=== PATIENT | female | born 1955 | race Caucasian/White ===

== ENCOUNTER 2016-11-17 13:21 | Inpatient (IN) | payer MEDICARE, MEDICAID ==
[~2016-11-17 13:21] MED LIST: ABILIFY10 MG; ABILIFY5 MG PO; ADVIL MIGRAINE200 MG; ALBUTEROL SULF8.5 G1 IH; ALBUTEROL17 GM; ALLOPURINOL100 MG PO; AMBIEN10 MG PO; ANTI DIARRHEAL; ATARAX50 MG PO; ATIVAN1 M1 PO; ATIVAN1 MG; AUGMENTIN 875-1 EAC2 PO; AZATHIOPRINE50 MG; AZATHIOPRINE50 MG PO; BENAZEPRIL-HCT; BENAZEPRIL-HCT PO; BENTYL10 MG PO; CEFDINIR300 M1 PO; CEFUROXIME250 M1 PO; CHANTIX1 MG; CULTURELLE1 EAC1 PO; CYCLOBENZAPRINE5 M1 PO; CYMBALTA30 MG; CYMBALTA30 MG PO; CYMBALTA60 MG; CYMBALTA60 MG PO; DOXYCYCLINE MO100 M1 PO; DULERA 200 MCG/13 G1 INH; ELIMITE60 G1 TP; ESTRADIOL1 MG; FELBAMATE PO; FLAGYL500 MG PO; FLEXERIL10 MG PO; GABAPENTIN300 MG; GABAPENTIN600 MG; GLUCAGEN1 MG/1 ML IM; GLUCAGON HCL1 MG IM; GLUCOPHAGE1000 M1 PO; HCTZ/RESERPINE/1 TAB; HUMIRA40 MG/0.8 SQ; HYDROCHLORIDE; HYDROCODON-ACE1 EA17 PO; HYDROCODONE-ACE15 M2 PO; HYDROCODONE/APA1 CAP PO; HYDROXYZINE HCL25 M1 PO; IMODIUM A-D2 M4 PO; IMURAN50 MG PO; JANUMET 50-1,01 EACH PO; K-DUR20 ME1 PO; K-DUR20 MEQ; K-TAB ER20 ME1 PO; KEPPRA500 M1 PO; KEPPRA500 M2 PO; KEPPRA500 M3 PO; KEPPRA500 MG; KEPPRA750 MG; KLONOPIN0.5 M1 PO; LAMICTAL25 M1 PO; LEVETIRACETAM500 M2 PO; LEXAPRO20 MG; LIPITOR80 MG PO; LISINOPRIL5 M1 PO; LOPERAMIDE; LOPERAMIDE2 MG; LOPRE PO; LOPRESSOR50 M1 PO; LOPRESSOR50 MG; LOPRESSOR50 MG PO; LOTENSIN HCT 201 TAB PO; LOVENOX40 MG/0.1 SC; LYRICA100 MG/CAP PO; LYRICA75 MG; MACROBID 100 M100 MG PO; MAXALT10 MG; METOPROLOL TART25 M1 PO; METOPROLOL TART50 M2 PO; METOPROLOL TART50 MG PO; MONISTAT 31 EACH TOP; MONISTAT 744 GM TP; MUCINEX600 MG; MULTIVITAMIN1 CAP; MULTIVITAMIN1 TAB; NEXIUM40 M1 PO; NEXIUM40 MG; NEXIUM40 MG PO; NORCO 10-325 T1 EACH PO; NORCO 10/325 TA1 TAB; NORCO 5-325 TA1 EACH PO; NORCO 5/325 TAB1 TAB PO; NORCO 5/3251 TA1 PO; NORCO 5/3251 TA2 PO; NORTRIPTYLINE H25 MG; NORTRIPTYLINE H50 MG; NORTRIPTYLINE H50 MG PO; NORVASC10 M1 PO; NORVASC2.5 MG PO; NORVASC5 M2 PO; NOVOLOG100 UNITS/ SC; NYAMYC15 GM TOP; OXYCODONE HCL5 M1 PO; PAMELOR50 MG; PERCOCET 5/3251 TAB PO; PHENERGAN12.5 MG PO; PHENERGAN25 M1 PO; PNV PRENATAL P1 EACH PO; POTASSIUM CHLO10 ME2 PO; POTASSIUM CHLO20 ME3 PO; POTASSIUM CHLO20 MEQ; POTASSIUM CHLO20 MEQ PO; PREDNISONE1 MG PO; PREDNISONE5 MG PO; PREMARIN0.3 MG PO; PREMARIN1.25 MG; PREMARIN1.25 MG PO; PROAIR HFA8.5 GM INH; PROCTOSOL HC RC; PROMETHAZINE25 MG PO; PROTONIX40 M2 PO; PROVENTIL0.83 MG/ML; PROZAC20 M2 PO; PROZAC40 MG PO; PYRIDIUM200 MG PO; REGLAN10 MG PO; REGLAN5 M1 PO; SEROQUEL X300 MG/TAB PO; SEROQUEL XR150 MG PO; SEROQUEL XR400 M2 PO; SEROQUEL100 M1 PO; SKELAXIN800 MG PO; SLOW-MAG71.5 MG PO; SPIRIVA; SPIRIVA18 MC1 INH; SPIRIVA18 MCG; SPIRIVA18 MCG IH; SYMBICORT 160-1 PUFF INH; SYMBICORT 160-4.6 GM IH; TOPAMAX100 M1 PO; TOPAMAX100 MG; TOPAMAX25 M2 PO; TOPIRAMATE100 MG PO; TOPIRAMATE50 M1 PO; TREXIMET 85-5001 TAB; TREXIMET 85-5001 TAB PO; TYLENOL325 M1 PO; TYLENOL325 M2 PO; VICODIN 5/500 T1 TAB PO; VIIBRYD10 MG PO; VIIBRYD20 M1 PO; VIIBRYD40 M1 PO; VITAMIN C PO; VITAMIN D250000 UNI1 PO; VITAMIN D32000 UNI1 PO; VITAMIN D32000 UNI2 PO; VITAMIN D400 UNI1 PO; XANAX0.25 M1 PO; ZOFRAN ODT4 MG PO; ZOFRAN ODT4 MG/UDTAB PO; ZOFRAN4 M1 PO; ZOFRAN4 M2 PO; ZYLOPRIM100 MG PO; [UNRECOGNIZED DRUG - CODE]; [UNRECOGNIZED DRUG - OTHER] PO; [UNRECOGNIZED DRUG - SUPPLY]
[2016-11-17] MEDS ORDERED: KEPPRA500 M3 PO (13:54)
[2016-11-17 14:41] LABS: HCT-HEMATOCRIT 36.1 % (34.0-49.0); HGB-HEMOGLOBIN 10.9 gm/dl (12.0-15.5); MCH (MEAN CORPUSCULAR HGB) 25.1 pg (28.0-32.0); MCHC MEAN CORPUSCULAR HGB CONC 30.2 % (32.0-36.0); MEAN PLATELET VOLUME 10.5 cmc (9.4-12.4); NEUTROPHIL-AUTOMATED 16.7 tho/cmm (1.6-8.0); PLATELET COUNT 572 tho/cmm (150-450); RED BLOOD COUNT 4.35 mil/cmm (4.00-5.20); RED CELL DISTRIBUTION WIDTH 16.3 % (12.4-16.4); WHITE BLOOD COUNT 21.1 tho/cmm (4.0-10.0)
[2016-11-17 14:51] LABS: URINE BILIRUBIN NEGATIVE (NEG); URINE BLOOD LARGE (NEG); URINE GLUCOSE (UA) NEGATIVE (NEG); URINE KETONE NEGATIVE (NEG); URINE LEUKOCYTE ESTERASE POSITIVE (NEG); URINE NITRITE NEGATIVE (NEG); URINE PROTEIN MODERATE (NEG); URINE SPECIFIC GRAVITY 1.015 (1.003-1.030)
[2016-11-17 14:52] LABS: URINE APPEARANCE HAZY; URINE COLOR YELLOW
[2016-11-17 14:59] LABS: URINE AMORPHOUS 2+; URINE BACTERIA 1+
[2016-11-17 15:00] LABS: URINE RBC FULL FIELD /[HPF] (0-5); URINE WBC FULL FIELD /[HPF] (0-5)
[2016-11-17 15:17] LABS: BAND % 5 % (0-20); BAND ABSOLUTE COUNT 1.1 tho/cmm (0-2.0); EOSINOPHIL % 3 % (0-7)
[2016-11-17 15:49] LABS: ANION GAP 17 mmol/L (0-20); BLOOD UREA NITROGEN 66 mg/dl (6-24); CALCIUM 10.1 mg/dl (8.5-10.5); CARBON DIOXIDE-VENOUS 20 mmol/L (22-32); CHLORIDE 104 mmol/l (96-110); CREATININE 4.11 mg/dl (0.50-1.10); GLUCOSE 123 mg/dL (70-110); MAGNESIUM 1.9 mg/dl (1.3-2.6); SODIUM 134 mmol/L (135-145); eGFR VALUE FOR BLACK 13 mL/Min
[2016-11-17 15:52] LABS: POTASSIUM 6.7 mmol/L (3.7-5.1)
[2016-11-17 16:10] LABS: PROCALCITONIN 0.14 ng/ml (0.05-0.09)
[2016-11-17 21:34] LABS: ANION GAP 13 mmol/L (0-20); BLOOD UREA NITROGEN 61 mg/dl (6-24); C-REACTIVE PROTEIN 5.2 mg/dl (0-0.9); CARBON DIOXIDE-VENOUS 22 mmol/L (22-32); CHLORIDE 108 mmol/l (96-110); CREATININE 3.36 mg/dl (0.50-1.10); GLUCOSE 150 mg/dL (70-110); SODIUM 137 mmol/L (135-145); eGFR VALUE FOR BLACK 16 mL/Min
[2016-11-17 21:38] LABS: POTASSIUM 5.6 mmol/L (3.7-5.1)
[2016-11-18 06:06] LABS: BASO % 0.2 % (0-2); EOS % 3.3 % (0-7); EOSINOPHIL ABSOLUTE COUNT 0.4 tho/cmm (0.0-0.7); HCT-HEMATOCRIT 30.8 % (34.0-49.0); HGB-HEMOGLOBIN 9.2 gm/dl (12.0-15.5); IMMATURE GRANULOCYTES ABSOLUTE 0.05 tho/cmm (0-0.03); IMMATURE GRANULOCYTES PERCENT 0.4 % (0-0.3); LYMPH % 11.8 % (20-45); LYMPH ABSOLUTE COUNT 1.5 tho/cmm (0.8-4.5); MCH (MEAN CORPUSCULAR HGB) 24.6 pg (28.0-32.0); MCHC MEAN CORPUSCULAR HGB CONC 29.9 % (32.0-36.0); MCV (MEAN CELL VOLUME) 82.4 fl (82.0-96.0); MEAN PLATELET VOLUME 9.8 cmc (9.4-12.4); MONO % 9.4 % (0-12); MONOCYTE ABSOLUTE COUNT 1.2 tho/cmm (0.0-1.2); NEUTROPHIL ABSOLUTE COUNT 9.4 tho/cmm (1.6-8.0); NEUTROPHIL-AUTOMATED 9.4 tho/cmm (1.6-8.0); NEUTROPHILS % 74.9 % (40-80); PLATELET COUNT 383 tho/cmm (150-450); RED BLOOD COUNT 3.74 mil/cmm (4.00-5.20); RED CELL DISTRIBUTION WIDTH 16.5 % (12.4-16.4); WHITE BLOOD COUNT 12.5 tho/cmm (4.0-10.0)
[2016-11-18 06:16] LABS: ANION GAP 12 mmol/L (0-20); BLOOD UREA NITROGEN 46 mg/dl (6-24); C-REACTIVE PROTEIN 4.2 mg/dl (0-0.9); CALCIUM 8.9 mg/dl (8.5-10.5); CARBON DIOXIDE-VENOUS 20 mmol/L (22-32); CHLORIDE 114 mmol/l (96-110); GLUCOSE 107 mg/dL (70-110); MAGNESIUM 1.6 mg/dl (1.3-2.6); SODIUM 141 mmol/L (135-145); eGFR VALUE FOR BLACK 25 mL/Min
[2016-11-18 06:26] LABS: CREATININE 2.32 mg/dl (0.50-1.10)
[2016-11-18 13:15] LABS: URINE PRT/CR RATIO 1.74 Ratio (0.0-0.20)
[2016-11-19 07:19] LABS: BASO % 0.2 % (0-2); EOS % 3.9 % (0-7); EOSINOPHIL ABSOLUTE COUNT 0.3 tho/cmm (0.0-0.7); HCT-HEMATOCRIT 28.4 % (34.0-49.0); HGB-HEMOGLOBIN 8.6 gm/dl (12.0-15.5); IMMATURE GRANULOCYTES ABSOLUTE 0.02 tho/cmm (0-0.03); IMMATURE GRANULOCYTES PERCENT 0.2 % (0-0.3); LYMPH % 15.4 % (20-45); LYMPH ABSOLUTE COUNT 1.3 tho/cmm (0.8-4.5); MCH (MEAN CORPUSCULAR HGB) 24.8 pg (28.0-32.0); MCHC MEAN CORPUSCULAR HGB CONC 30.3 % (32.0-36.0); MCV (MEAN CELL VOLUME) 81.8 fl (82.0-96.0); MEAN PLATELET VOLUME 9.5 cmc (9.4-12.4); MONOCYTE ABSOLUTE COUNT 0.8 tho/cmm (0.0-1.2); NEUTROPHIL ABSOLUTE COUNT 6.2 tho/cmm (1.6-8.0); NEUTROPHIL-AUTOMATED 6.2 tho/cmm (1.6-8.0); NEUTROPHILS % 71.3 % (40-80); PLATELET COUNT 327 tho/cmm (150-450); RED BLOOD COUNT 3.47 mil/cmm (4.00-5.20); RED CELL DISTRIBUTION WIDTH 16.6 % (12.4-16.4); WHITE BLOOD COUNT 8.7 tho/cmm (4.0-10.0)
[2016-11-19 07:35] LABS: BLOOD UREA NITROGEN 18 mg/dl (6-24); CALCIUM 8.6 mg/dl (8.5-10.5); CARBON DIOXIDE-VENOUS 20 mmol/L (22-32); CHLORIDE 115 mmol/l (96-110); GLUCOSE 143 mg/dL (70-110); MAGNESIUM 1.3 mg/dl (1.3-2.6); PHOSPHOROUS 2.4 mg/dl (2.5-4.9); SODIUM 143 mmol/L (135-145); eGFR VALUE FOR BLACK 51 mL/Min
[2016-11-19 07:37] LABS: ANION GAP 12 mmol/L (0-20)
[2016-11-19] MEDS ORDERED: TERCONAZOLE80 MG VG (10:36)
[2016-11-19] MEDS ORDERED: HOLD THE FOLLOWING: (10:38)
[2016-11-19] MEDS ORDERED: STOP THE FOLLOWING: (10:40)
[2017-03-04] MEDS ORDERED: MACROBID 100 M100 M1 PO (21:43)
[2017-04-05] MEDS ORDERED: PERCOCET 7.5-31 EAC1 PO (11:03)
[2017-04-05] MEDS ORDERED: AUGMENTIN 875-1 EAC2 PO (11:04)
[2017-04-05] MEDS ORDERED: KEPPRA500 M3 PO (11:22)
[2017-04-08] MEDS ORDERED: CLEOCIN HCL300 M1 PO (16:01)
[2017-04-22] MEDS ORDERED: INVANZ1 GM IV ×3 (07:42→08:28)
[2017-04-22] MEDS ORDERED: CULTURELLE1 EAC1 PO (09:57)
[2017-06-12] MEDS ORDERED: JANUMET (19:53)
[2017-06-12] MEDS ORDERED: [UNRECOGNIZED DRUG - OTHER] (19:56)
[2017-06-12] MEDS ORDERED: SYMBICORT 160-1 PUFF INH (19:56)
[2017-06-12] MEDS ORDERED: CEFDINIR300 M1 PO (21:08)
== END 2016-11-19 12:00 | DRG 683 ==
LOC: EDMED 13:21 → EMR2 18:59 → 5WD 20:47
PROVIDERS: Emergency Medicine; ADMIT Family Medicine
DX: N17.9 Acute kidney failure, unspecified (principal); N39.0 Urinary tract infection, site not specified; I95.9 Hypotension, unspecified; K50.90 Crohn's disease, unspecified, without complications; E86.1 Hypovolemia; E11.9 Type 2 diabetes mellitus without complications; R00.0 Tachycardia, unspecified; J44.9 Chronic obstructive pulmonary disease, unspecified; E87.5 Hyperkalemia; N89.8 Other specified noninflammatory disorders of vagina; R42 Dizziness and giddiness; G40.909 Epilepsy, unspecified, not intractable, without status epilepticus; F41.9 Anxiety disorder, unspecified; F32.9 Major depressive disorder, single episode, unspecified; K21.9 Gastro-esophageal reflux disease without esophagitis; F11.90 Opioid use, unspecified, uncomplicated; Z88.8 Allergy status to other drugs, medicaments and biological substances; Z90.710 Acquired absence of both cervix and uterus; Z90.49 Acquired absence of other specified parts of digestive tract; Z86.73 Personal history of transient ischemic attack (TIA), and cerebral infarction without residual deficits; Z88.1 Allergy status to other antibiotic agents; Z88.2 Allergy status to sulfonamides; Z93.2 Ileostomy status
CPT/HCPCS: J0610; J0696; J1650; J1815; J2270; J2405; J2543; J7030

== ENCOUNTER 2017-01-12 11:09 | Inpatient (IN) | payer MEDICARE, MEDICAID ==
[~2017-01-12 11:09] MED LIST changes: +HOLD THE FOLLOWING:; +STOP THE FOLLOWING:; +TERCONAZOLE80 MG VG
[2017-01-12] MEDS ORDERED: XANAX0.25 M1 PO (11:30)
[2017-01-12] MEDS ORDERED: AMITRIPTYLINE100 M1 PO (11:31)
[2017-01-12] MEDS ORDERED: HUMIRA40 MG/0.3 SC (11:32)
[2017-01-12] MEDS ORDERED: PRINIVIL5 M1 PO (11:52)
[2017-01-12] MEDS ORDERED: AMITRIPTYLINE H50 M1 PO (11:55)
[2017-01-12 12:01] LABS: BASO % 0.2 % (0-2); EOS % 1.1 % (0-7); EOSINOPHIL ABSOLUTE COUNT 0.1 tho/cmm (0.0-0.7); IMMATURE GRANULOCYTES ABSOLUTE 0.04 tho/cmm (0-0.03); IMMATURE GRANULOCYTES PERCENT 0.3 % (0-0.3); LYMPH % 16.2 % (20-45); LYMPH ABSOLUTE COUNT 2.1 tho/cmm (0.8-4.5); MCH (MEAN CORPUSCULAR HGB) 24.2 pg (28.0-32.0); MCHC MEAN CORPUSCULAR HGB CONC 30.6 % (32.0-36.0); MCV (MEAN CELL VOLUME) 79.3 fl (82.0-96.0); MEAN PLATELET VOLUME 9.7 cmc (9.4-12.4); MONO % 10.2 % (0-12); MONOCYTE ABSOLUTE COUNT 1.3 tho/cmm (0.0-1.2); NEUTROPHIL ABSOLUTE COUNT 9.2 tho/cmm (1.6-8.0); NEUTROPHIL-AUTOMATED 9.2 tho/cmm (1.6-8.0); PLATELET COUNT 376 tho/cmm (150-450); RED BLOOD COUNT 4.54 mil/cmm (4.00-5.20); RED CELL DISTRIBUTION WIDTH 16.9 % (12.4-16.4); WHITE BLOOD COUNT 12.7 tho/cmm (4.0-10.0)
[2017-01-12] MEDS ORDERED: LOPRESSOR50 M1 PO (12:07)
[2017-01-12 12:17] LABS: ALB/GLOB RATIO 0.6 (0.8-2.0); ALBUMIN 3.3 g/dl (3.5-5.0); ALKALINE PHOSPHATASE 132 U/L (33-138); ALT/SGPT 19 U/L (12-78); BILIRUBIN,TOTAL 0.2 mg/dl (0-1.5); BLOOD UREA NITROGEN 14 mg/dl (6-24); C-REACTIVE PROTEIN 4.9 mg/dl (0-0.9); CALCIUM 9.9 mg/dl (8.5-10.5); CARBON DIOXIDE-VENOUS 19 mmol/L (22-32); CHLORIDE 107 mmol/l (96-110); CREATININE 1.02 mg/dl (0.50-1.10); GLUCOSE 131 mg/dL (70-110); SODIUM 138 mmol/L (135-145); eGFR VALUE FOR BLACK 69 mL/Min
[2017-01-12 12:19] LABS: ANION GAP 17 mmol/L (0-20)
[2017-01-12 12:20] LABS: AST/SGOT 19 U/L (10-40); POTASSIUM 4.6 mmol/L (3.7-5.1)
[2017-01-12 15:03] LABS: URINE BILIRUBIN NEGATIVE (NEG); URINE BLOOD LARGE (NEG); URINE GLUCOSE (UA) NEGATIVE (NEG); URINE KETONE NEGATIVE (NEG); URINE LEUKOCYTE ESTERASE POSITIVE (NEG); URINE NITRITE NEGATIVE (NEG); URINE PROTEIN MODERATE (NEG)
[2017-01-12 15:05] LABS: URINE APPEARANCE HAZY; URINE COLOR DARK YELLOW
[2017-01-12 15:11] LABS: URINE RBC 100-120 /[HPF] (0-5); URINE WBC 15-20 /[HPF] (0-5)
[2017-01-12 15:28] LABS: PROTHROMBIN TIME 11.2 SECONDS (9.0-13.6)
[2017-01-12 15:31] LABS: MAGNESIUM 2.1 mg/dl (1.8-2.6)
[2017-01-12 15:45] LABS: PROCALCITONIN <0.05 ng/ml (0.05-0.09)
[2017-01-13 04:32] LABS: HCT-HEMATOCRIT 29.5 % (34.0-49.0); HGB-HEMOGLOBIN 8.8 gm/dl (12.0-15.5); IMMATURE GRANULOCYTES ABSOLUTE 0.02 tho/cmm (0-0.03); IMMATURE GRANULOCYTES PERCENT 0.2 % (0-0.3); LYMPH % 10.7 % (20-45); LYMPH ABSOLUTE COUNT 0.9 tho/cmm (0.8-4.5); MCH (MEAN CORPUSCULAR HGB) 23.7 pg (28.0-32.0); MCHC MEAN CORPUSCULAR HGB CONC 29.8 % (32.0-36.0); MCV (MEAN CELL VOLUME) 79.3 fl (82.0-96.0); MONO % 5.3 % (0-12); MONOCYTE ABSOLUTE COUNT 0.4 tho/cmm (0.0-1.2); NEUTROPHILS % 83.8 % (40-80); PLATELET COUNT 331 tho/cmm (150-450); RED BLOOD COUNT 3.72 mil/cmm (4.00-5.20); RED CELL DISTRIBUTION WIDTH 16.8 % (12.4-16.4); WHITE BLOOD COUNT 8.4 tho/cmm (4.0-10.0)
[2017-01-13 04:48] LABS: ANION GAP 13 mmol/L (0-20); BLOOD UREA NITROGEN 12 mg/dl (6-24); C-REACTIVE PROTEIN 4.4 mg/dl (0-0.9); CALCIUM 8.6 mg/dl (8.5-10.5); CARBON DIOXIDE-VENOUS 22 mmol/L (22-32); CHLORIDE 109 mmol/l (96-110); CREATININE 1.01 mg/dl (0.50-1.10); GLUCOSE 145 mg/dL (70-110); POTASSIUM 4.3 mmol/L (3.7-5.1); SODIUM 140 mmol/L (135-145); eGFR VALUE FOR BLACK 70 mL/Min
[2017-01-13 05:16] LABS: PROCALCITONIN <0.05 ng/ml (0.05-0.09)
[2017-01-13 09:08] LABS: IRON 16 ug/dl (37-170); IRON BINDING CAPACITY 286 ug/dl (250-450)
--- NOTE | 2017-01-13 20:47 | NUR ---
DESHAUN GUERRA NOTE-VISITED WITH PATIENT SHE LAY IN BED COMFORTABLE STATING PAIN IS STAYING CONTROLLED. SHE STATES SHE HAS NOT BEEN ABLE TO WALK IN HALLS HER OSTOMY BAG WAS LEAKING TODAY AND HAD TO WAIT FOR EMIR TO COME FIX WITH THE WOUND VAC. NOW IT IS WORKING RIGHT AND NOT LEAKING SO SHE CAN WALK IN HALLS. I PAGED AIDE REQUESTING FOR HER TO WALK PATIENT AND HELP TO THE BATHROOM. PATIENT HAD NO OTHER QUESTIONS OR CONCERNS AT THIS TIME. CHART REVIEWED
[2017-01-14 04:19] LABS: BASO % 0.2 % (0-2); EOS % 0.8 % (0-7); EOSINOPHIL ABSOLUTE COUNT 0.1 tho/cmm (0.0-0.7); HCT-HEMATOCRIT 26.3 % (34.0-49.0); HGB-HEMOGLOBIN 7.8 gm/dl (12.0-15.5); IMMATURE GRANULOCYTES ABSOLUTE 0.02 tho/cmm (0-0.03); IMMATURE GRANULOCYTES PERCENT 0.2 % (0-0.3); LYMPH % 18.6 % (20-45); LYMPH ABSOLUTE COUNT 1.8 tho/cmm (0.8-4.5); MCH (MEAN CORPUSCULAR HGB) 23.5 pg (28.0-32.0); MCHC MEAN CORPUSCULAR HGB CONC 29.7 % (32.0-36.0); MCV (MEAN CELL VOLUME) 79.2 fl (82.0-96.0); MEAN PLATELET VOLUME 9.3 cmc (9.4-12.4); MONO % 11.1 % (0-12); MONOCYTE ABSOLUTE COUNT 1.1 tho/cmm (0.0-1.2); NEUTROPHIL ABSOLUTE COUNT 6.7 tho/cmm (1.6-8.0); NEUTROPHIL-AUTOMATED 6.7 tho/cmm (1.6-8.0); NEUTROPHILS % 69.1 % (40-80); PLATELET COUNT 289 tho/cmm (150-450); RED BLOOD COUNT 3.32 mil/cmm (4.00-5.20); RED CELL DISTRIBUTION WIDTH 17.3 % (12.4-16.4); WHITE BLOOD COUNT 9.6 tho/cmm (4.0-10.0)
[2017-01-14 04:28] LABS: ANION GAP 13 mmol/L (0-20); BLOOD UREA NITROGEN 16 mg/dl (6-24); CALCIUM 8.4 mg/dl (8.5-10.5); CARBON DIOXIDE-VENOUS 22 mmol/L (22-32); CHLORIDE 114 mmol/l (96-110); CREATININE 1.07 mg/dl (0.50-1.10); GLUCOSE 164 mg/dL (70-110); SODIUM 145 mmol/L (135-145); eGFR VALUE FOR BLACK 65 mL/Min
[2017-01-14 13:47] LABS: HCT-HEMATOCRIT 27.8 % (34.0-49.0); HGB-HEMOGLOBIN 8.3 gm/dl (12.0-15.5); MCV (MEAN CELL VOLUME) 78.8 fl (82.0-96.0); RED CELL DISTRIBUTION WIDTH 17.4 % (12.4-16.4)
--- NOTE | 2017-01-14 21:03 | NUR ---
VIRTUAL CARE NOTE: REVIEWED PLAN OF CARE WITH PT. SHE STATES IS READY TO GO HOME. SPOKE TO INSURANCE COMPANY AND SHE SAYS IT SOUNDS LIKE EVERYTHING SHOULD BE STRAIGHTENED OUT, INSURANCE WAS JUST NEED TO SPEAK WITH MD POSSIBLE R/G WOUND VAC. PT DENIES QUESTIONS ABOUT PLAN OR MEDICATIONS. ENCOURAGED FALL PRECUATIONS AND TO NOTIFY STAFF OF ANY NEEDS, REQUESTING ICE CREAM AT THIS TIME. PAGED FLOOR STAFF. WILL CONTINUE WITH CHART REVIEW.
[2017-01-15 04:55] LABS: BASO % 0.3 % (0-2); EOS % 2.3 % (0-7); EOSINOPHIL ABSOLUTE COUNT 0.2 tho/cmm (0.0-0.7); HCT-HEMATOCRIT 28.1 % (34.0-49.0); HGB-HEMOGLOBIN 8.3 gm/dl (12.0-15.5); IMMATURE GRANULOCYTES ABSOLUTE 0.04 tho/cmm (0-0.03); IMMATURE GRANULOCYTES PERCENT 0.5 % (0-0.3); LYMPH % 22.9 % (20-45); LYMPH ABSOLUTE COUNT 1.8 tho/cmm (0.8-4.5); MCH (MEAN CORPUSCULAR HGB) 23.4 pg (28.0-32.0); MCHC MEAN CORPUSCULAR HGB CONC 29.5 % (32.0-36.0); MCV (MEAN CELL VOLUME) 79.2 fl (82.0-96.0); MEAN PLATELET VOLUME 8.9 cmc (9.4-12.4); MONOCYTE ABSOLUTE COUNT 0.9 tho/cmm (0.0-1.2); PLATELET COUNT 287 tho/cmm (150-450); RED BLOOD COUNT 3.55 mil/cmm (4.00-5.20); RED CELL DISTRIBUTION WIDTH 17.4 % (12.4-16.4); WHITE BLOOD COUNT 7.9 tho/cmm (4.0-10.0)
[2017-01-15 05:03] LABS: ANION GAP 11 mmol/L (0-20); BLOOD UREA NITROGEN 11 mg/dl (6-24); CALCIUM 8.7 mg/dl (8.5-10.5); CARBON DIOXIDE-VENOUS 24 mmol/L (22-32); CHLORIDE 114 mmol/l (96-110); CREATININE 0.99 mg/dl (0.50-1.10); GLUCOSE 130 mg/dL (70-110); POTASSIUM 3.7 mmol/L (3.7-5.1); SODIUM 145 mmol/L (135-145); eGFR VALUE FOR BLACK 71 mL/Min
[2017-01-15] MEDS ORDERED: CLEOCIN HCL300 M1 PO (10:58)
[2017-01-15] MEDS ORDERED: IRON325 M3 PO (11:01)
[2017-01-15] MEDS ORDERED: TYLENOL325 M2 PO (11:02)
--- NOTE | 2017-01-15 14:35 | NUR ---
virtual care note: visited w/ pt at this time. she is hoping to go home, just waiting on wound vac approval from insurance. pt states she called her insurance company as well to see how long it would take--they told her up to 72 hours. pt's discharge paperwork is complete, just waiting to perform dc education when approval is recieved from insurance and social professionals. has no further needs at this time, no questions. will continue to monitor. electronic chart reviewed.
--- NOTE | 2017-01-15 21:36 | NUR ---
VIRTUAL CARE NOTES: PT. IN BED, DENIES PAIN. STATES HAS WALKED X1 TODAY. ENCOURAGED TO WALK MORE IN THE HALLWAYS FOR PREVENTION OF CLOTS AND PNEUMONIA. DENIES FURTHER NEEDS AT THIS TIME. INSTRUCTED TO CALL FOR FURTURE NEEDS. STATES VERBAL AGREEMENT.
[2017-01-16 07:43] LABS: HGB-HEMOGLOBIN 9.9 gm/dl (12.0-15.5); PLATELET COUNT 344 tho/cmm (150-450)
--- NOTE | 2017-01-16 15:40 | NUR ---
VIRTUAL CARE NOTE: PT AWAKE RESTING IN BED. PT AWAITING INSURANCE AUTHORIZATION FOR HOME WOUND VAC- VERBALIZES FRUSTRATION WITH PENDING AUTHORIZATION. PT DENIES QUESTIONS OR OTHER CONCERNS AT THIS TIME.
--- NOTE | 2017-01-16 21:22 | NUR ---
VIRTUAL CARE NOTE: PT. IN BED, STATES HER IV GOT PUFFY PRIOR SO THEY TOOK IT OUT. DENIES PAIN. STATES FEELS GREAT. DENIES QUESTIONS OR NEEDS AT THIS TIME. INSTRUCTED TO CALL FOR FUTURE NEEDS.
--- NOTE | 2017-01-17 14:55 | NUR ---
VIRTUAL CARE NOTE: PT UNAVAILABLE AT THIS TIME FOR VN ROUND. ORDERS REVIEWED. PT AWAITING INSURANCE AUTHORIZATION FOR HOME WOUNDVAC-DC PENDING
--- NOTE | 2017-01-17 19:23 | NUR ---
VIRTUAL CARE NOTE: PT. IN BED DENIES PAIN, HAS NO QUESTIONS OR CONCERNS AT THIS TIME. INSTRUCTED TO CALL FOR FUTURE NEEDS. STATES VERBAL AGREEMENT.
[2017-01-18 05:37] LABS: HGB-HEMOGLOBIN 10.9 gm/dl (12.0-15.5); PLATELET COUNT 384 tho/cmm (150-450)
[2017-01-18] MEDS ORDERED: KEFLEX500 M4 PO (11:13)
--- NOTE | 2017-01-18 12:52 | NUR ---
VIRTUAL CARE NOTE: PT RESTING ON BED, STATES GETTING BORED, AWAITING FOR WOUDN VAC APPROVAL FROM HER INSURANCE TO BE DISCHARGED HOME. WOUND VAC CHANGED TODAY, PT AMBULATES INDEPENDENTLY, DENIES ANY NEEDS AT THIS TIME.
[2017-01-19] MEDS ORDERED: CLEOCIN HCL300 M1 PO (12:32)
--- NOTE | 2017-01-19 13:12 | NUR ---
VN DISCHARGE NOTE-DID DISCHARGE TEACHING REGARDING DRESSING CHANGES WITH THE WOUND VAC AND HAVING [facility] DO THEM ON M,W,F. REVIEWED DIET,SMOKING CESSATION, MEDICATIONS AND NEW MEDICATIONS, S/S TO WATCH FOR AND TO CALL THE DOCTOR ON. FOLLOWUP APPTS REVIEWED ALSO. PATIENT SUCCESSFULLY DID THE TEACHBACK TEACHING AND WE REVIEWED WHAT MEDS SHE WILL NEED TO TAKE TONIGHT AGAIN THE LAST DOSE IS ON THE DISCHARGE MEDICATION SHEET. NO OTHER QUESTIONS OR CONCERNS AT THIS TIME
[2017-03-04] MEDS ORDERED: MACROBID 100 M100 M1 PO (21:43)
[2017-04-05] MEDS ORDERED: PERCOCET 7.5-31 EAC1 PO (11:03)
[2017-04-05] MEDS ORDERED: AUGMENTIN 875-1 EAC2 PO (11:04)
[2017-04-05] MEDS ORDERED: KEPPRA500 M3 PO (11:22)
[2017-04-08] MEDS ORDERED: CLEOCIN HCL300 M1 PO (16:01)
[2017-04-22] MEDS ORDERED: INVANZ1 GM IV ×3 (07:42→08:28)
[2017-04-22] MEDS ORDERED: CULTURELLE1 EAC1 PO (09:57)
[2017-06-12] MEDS ORDERED: JANUMET (19:53)
[2017-06-12] MEDS ORDERED: SYMBICORT 160-1 PUFF INH (19:56)
[2017-06-12] MEDS ORDERED: [UNRECOGNIZED DRUG - OTHER] (19:56)
[2017-06-12] MEDS ORDERED: CEFDINIR300 M1 PO (21:08)
== END 2017-01-19 13:35 | disposition home health service (06) | DRG 857 ==
LOC: EDMED 11:09 → EMR2 15:04 → PACU 17:53 → 5WD 19:16
PROVIDERS: Nurse Practitioner Family; ADMIT Family Medicine
PROC: 0JB80ZZ Excision of Abdomen Subcutaneous Tissue and Fascia, Open Approach (ICD-10-PCS; principal; 2017-01-12)
PROC: 0J980ZZ Drainage of Abdomen Subcutaneous Tissue and Fascia, Open Approach (ICD-10-PCS; 2017-01-12)
DX: T81.4XXA Infection following a procedure, initial encounter (principal); E87.2 Acidosis; K50.90 Crohn's disease, unspecified, without complications; E11.65 Type 2 diabetes mellitus with hyperglycemia; D62 Acute posthemorrhagic anemia; L02.211 Cutaneous abscess of abdominal wall; L03.311 Cellulitis of abdominal wall; J44.9 Chronic obstructive pulmonary disease, unspecified; K21.9 Gastro-esophageal reflux disease without esophagitis; G40.909 Epilepsy, unspecified, not intractable, without status epilepticus; Z86.73 Personal history of transient ischemic attack (TIA), and cerebral infarction without residual deficits; I10 Essential (primary) hypertension; F41.9 Anxiety disorder, unspecified; Z79.84 Long term (current) use of oral hypoglycemic drugs; Z87.891 Personal history of nicotine dependence; Z93.2 Ileostomy status; R00.0 Tachycardia, unspecified; Z90.49 Acquired absence of other specified parts of digestive tract; Z88.1 Allergy status to other antibiotic agents; Z88.2 Allergy status to sulfonamides; Z88.8 Allergy status to other drugs, medicaments and biological substances; D50.9 Iron deficiency anemia, unspecified; R19.7 Diarrhea, unspecified; T36.95XA Adverse effect of unspecified systemic antibiotic, initial encounter
CPT/HCPCS: J1170; J1450; J1644; J2405; J2543; J3010; J3370; J7030; Q9967

== ENCOUNTER 2017-01-23 15:41 | Inpatient (IN) | payer MEDICARE, MEDICAID ==
[~2017-01-23 15:41] MED LIST changes: +AMITRIPTYLINE H50 M1 PO; +AMITRIPTYLINE100 M1 PO; +CLEOCIN HCL300 M1 PO; +HUMIRA40 MG/0.3 SC; +IRON325 M3 PO; +KEFLEX500 M4 PO; +PRINIVIL5 M1 PO
[2017-01-23 16:16] LABS: BASO % 0.2 % (0-2); HCT-HEMATOCRIT 36.8 % (34.0-49.0); HGB-HEMOGLOBIN 11.8 gm/dl (12.0-15.5); IMMATURE GRANULOCYTES ABSOLUTE 0.12 tho/cmm (0-0.03); IMMATURE GRANULOCYTES PERCENT 0.5 % (0-0.3); LYMPH % 8.8 % (20-45); LYMPH ABSOLUTE COUNT 2.2 tho/cmm (0.8-4.5); MCH (MEAN CORPUSCULAR HGB) 24.8 pg (28.0-32.0); MCHC MEAN CORPUSCULAR HGB CONC 32.1 % (32.0-36.0); MCV (MEAN CELL VOLUME) 77.3 fl (82.0-96.0); MONO % 6.7 % (0-12); MONOCYTE ABSOLUTE COUNT 1.7 tho/cmm (0.0-1.2); NEUTROPHIL ABSOLUTE COUNT 21.3 tho/cmm (1.6-8.0); NEUTROPHIL-AUTOMATED 21.3 tho/cmm (1.6-8.0); NEUTROPHILS % 83.8 % (40-80); PLATELET COUNT 426 tho/cmm (150-450); RED BLOOD COUNT 4.76 mil/cmm (4.00-5.20); RED CELL DISTRIBUTION WIDTH 17.1 % (12.4-16.4); WHITE BLOOD COUNT 25.4 tho/cmm (4.0-10.0)
[2017-01-23 16:19] LABS: INR 1.1 INR (0.9-1.1); PROTHROMBIN TIME 12.9 SECONDS (9.0-13.6)
[2017-01-23 16:35] LABS: ALB/GLOB RATIO 0.6 (0.8-2.0); ALBUMIN 3.3 g/dl (3.5-5.0); ALKALINE PHOSPHATASE 140 U/L (33-138); ALT/SGPT 22 U/L (12-78); ANION GAP 19 mmol/L (0-20); AST/SGOT 21 U/L (10-40); BILIRUBIN,TOTAL 0.4 mg/dl (0-1.5); BLOOD UREA NITROGEN 33 mg/dl (6-24); CALCIUM 9.7 mg/dl (8.5-10.5); CARBON DIOXIDE-VENOUS 15 mmol/L (22-32); CHLORIDE 100 mmol/l (96-110); CREATININE 1.35 mg/dl (0.50-1.10); GLUCOSE 248 mg/dL (70-110); LIPASE 173 U/L (73-393); POTASSIUM 4.4 mmol/L (3.7-5.1); SODIUM 130 mmol/L (135-145); eGFR VALUE FOR BLACK 49 mL/Min
[2017-01-23 16:47] LABS: PROCALCITONIN 0.15 ng/ml (0.05-0.09)
[2017-01-23 16:48] LABS: URINE BILIRUBIN MODERATE (NEG); URINE BLOOD LARGE (NEG); URINE GLUCOSE (UA) NEGATIVE (NEG); URINE KETONE MODERATE (NEG); URINE LEUKOCYTE ESTERASE POSITIVE (NEG); URINE NITRITE POSITIVE (NEG); URINE PROTEIN LARGE (NEG)
[2017-01-23 16:49] LABS: URINE APPEARANCE CLOUDY; URINE COLOR ORANGE
[2017-01-23] MEDS ORDERED: AUGMENTIN 875-1 EAC2 PO (16:50)
[2017-01-23 16:59] LABS: URINE AMORPHOUS 1+; URINE RBC FULL FIELD /[HPF] (0-5)
[2017-01-23 17:00] LABS: URINE BACTERIA 1+
[2017-01-23 17:01] LABS: URINE WBC 50-80 /[HPF] (0-5)
[2017-01-24 04:35] LABS: BASO % 0.2 % (0-2); HCT-HEMATOCRIT 27.7 % (34.0-49.0); IMMATURE GRANULOCYTES ABSOLUTE 0.05 tho/cmm (0-0.03); IMMATURE GRANULOCYTES PERCENT 0.3 % (0-0.3); LYMPH % 5.8 % (20-45); LYMPH ABSOLUTE COUNT 0.9 tho/cmm (0.8-4.5); MCH (MEAN CORPUSCULAR HGB) 23.9 pg (28.0-32.0); MCHC MEAN CORPUSCULAR HGB CONC 31.4 % (32.0-36.0); MCV (MEAN CELL VOLUME) 76.1 fl (82.0-96.0); MEAN PLATELET VOLUME 9.5 cmc (9.4-12.4); MONO % 13.3 % (0-12); NEUTROPHILS % 80.4 % (40-80); PLATELET COUNT 288 tho/cmm (150-450); RED BLOOD COUNT 3.64 mil/cmm (4.00-5.20); RED CELL DISTRIBUTION WIDTH 17.2 % (12.4-16.4); WHITE BLOOD COUNT 14.9 tho/cmm (4.0-10.0)
[2017-01-24 04:59] LABS: ANION GAP 15 mmol/L (0-20); BLOOD UREA NITROGEN 14 mg/dl (6-24); CARBON DIOXIDE-VENOUS 19 mmol/L (22-32); CHLORIDE 101 mmol/l (96-110); CREATININE 0.94 mg/dl (0.50-1.10); GLUCOSE 147 mg/dL (70-110); MAGNESIUM 1.6 mg/dl (1.8-2.6); SODIUM 132 mmol/L (135-145); eGFR VALUE FOR BLACK 76 mL/Min
[2017-01-24 05:15] LABS: HGB-HEMOGLOBIN 8.7 gm/dl (12.0-15.5)
--- NOTE | 2017-01-24 21:49 | NUR ---
VN/LEADER ROUNDING-VISITED WITH PATIENT-PAIN IS STAYING CONTROLLED EXCEPT THAT SHE HAS A HEADACHE AND IS NAUSEATED. SHE JUST GOT SOME ZOFRAN AT 1930 SO I TOLD HER I WOULD PAGE THE NURSE TO BRING SOME MORE IN. PATIENT HAD NO OTHER CONCERNS EXCEPT A LITTLE DELAY IN ANSWERING THE IV GOING OFF EARLIER OTHERWISE CARE IS GREAT.
--- NOTE | 2017-01-25 04:36 | NUR ---
VN NOTE-PAGED PICC TEAM REQUESTING A MIDLINE THE PATIENT VEIN IS BURNING FROM K+ INFUSING AND PATIENT REFUSES TO TAKE PO K+ SHE THROWS IT UP.
[2017-01-25 06:36] LABS: BASO % 0.2 % (0-2); EOS % 0.1 % (0-7); HCT-HEMATOCRIT 29.2 % (34.0-49.0); HGB-HEMOGLOBIN 9.1 gm/dl (12.0-15.5); IMMATURE GRANULOCYTES ABSOLUTE 0.04 tho/cmm (0-0.03); IMMATURE GRANULOCYTES PERCENT 0.3 % (0-0.3); LYMPH % 7.1 % (20-45); LYMPH ABSOLUTE COUNT 0.8 tho/cmm (0.8-4.5); MCH (MEAN CORPUSCULAR HGB) 24.1 pg (28.0-32.0); MCHC MEAN CORPUSCULAR HGB CONC 31.2 % (32.0-36.0); MCV (MEAN CELL VOLUME) 77.5 fl (82.0-96.0); MEAN PLATELET VOLUME 9.8 cmc (9.4-12.4); MONO % 11.1 % (0-12); MONOCYTE ABSOLUTE COUNT 1.3 tho/cmm (0.0-1.2); NEUTROPHIL ABSOLUTE COUNT 9.3 tho/cmm (1.6-8.0); NEUTROPHIL-AUTOMATED 9.3 tho/cmm (1.6-8.0); NEUTROPHILS % 81.2 % (40-80); PLATELET COUNT 265 tho/cmm (150-450); RED BLOOD COUNT 3.77 mil/cmm (4.00-5.20); RED CELL DISTRIBUTION WIDTH 17.5 % (12.4-16.4); WHITE BLOOD COUNT 11.4 tho/cmm (4.0-10.0)
[2017-01-25 06:43] LABS: ANION GAP 14 mmol/L (0-20); BLOOD UREA NITROGEN 7 mg/dl (6-24); CALCIUM 8.5 mg/dl (8.5-10.5); CARBON DIOXIDE-VENOUS 19 mmol/L (22-32); CHLORIDE 107 mmol/l (96-110); CREATININE 0.91 mg/dl (0.50-1.10); GLUCOSE 123 mg/dL (70-110); POTASSIUM 3.9 mmol/L (3.7-5.1); SODIUM 136 mmol/L (135-145); eGFR VALUE FOR BLACK 79 mL/Min
[2017-01-26 06:46] LABS: BASO % 0.2 % (0-2); EOS % 0.8 % (0-7); EOSINOPHIL ABSOLUTE COUNT 0.1 tho/cmm (0.0-0.7); HCT-HEMATOCRIT 29.7 % (34.0-49.0); HGB-HEMOGLOBIN 9.1 gm/dl (12.0-15.5); IMMATURE GRANULOCYTES ABSOLUTE 0.04 tho/cmm (0-0.03); IMMATURE GRANULOCYTES PERCENT 0.4 % (0-0.3); LYMPH % 12.3 % (20-45); LYMPH ABSOLUTE COUNT 1.4 tho/cmm (0.8-4.5); MCH (MEAN CORPUSCULAR HGB) 23.8 pg (28.0-32.0); MCHC MEAN CORPUSCULAR HGB CONC 30.6 % (32.0-36.0); MCV (MEAN CELL VOLUME) 77.5 fl (82.0-96.0); MEAN PLATELET VOLUME 9.6 cmc (9.4-12.4); MONO % 12.4 % (0-12); MONOCYTE ABSOLUTE COUNT 1.4 tho/cmm (0.0-1.2); NEUTROPHIL ABSOLUTE COUNT 8.3 tho/cmm (1.6-8.0); NEUTROPHIL-AUTOMATED 8.3 tho/cmm (1.6-8.0); NEUTROPHILS % 73.9 % (40-80); PLATELET COUNT 269 tho/cmm (150-450); RED BLOOD COUNT 3.83 mil/cmm (4.00-5.20); RED CELL DISTRIBUTION WIDTH 17.9 % (12.4-16.4); WHITE BLOOD COUNT 11.2 tho/cmm (4.0-10.0)
[2017-01-26 06:55] LABS: ANION GAP 11 mmol/L (0-20); BLOOD UREA NITROGEN 10 mg/dl (6-24); CALCIUM 8.6 mg/dl (8.5-10.5); CARBON DIOXIDE-VENOUS 20 mmol/L (22-32); CHLORIDE 116 mmol/l (96-110); CREATININE 0.87 mg/dl (0.50-1.10); GLUCOSE 129 mg/dL (70-110); POTASSIUM 4.3 mmol/L (3.7-5.1); SODIUM 143 mmol/L (135-145); eGFR VALUE FOR BLACK 83 mL/Min
--- NOTE | 2017-01-26 22:12 | NUR ---
VIRTUAL CARE: PT. IN BED, IS DOING OKAY AT THIS TIME, PAIN IS TOLERABLE, AND HAS VOIDED AFTER HER CATHETER WAS REMOVED. EDUCATION PROVIDED ON POTASSIUM PROTOCOL ORDERED. DENIES FURTHER QUESTIONS OR NEEDS AT THIS TIME. INSTRUCTED TO CALL FOR FUTURE NEEDS. STATES VERBAL AGREEMENT.
[2017-01-27 02:18] LABS: ANION GAP 14 mmol/L (0-20); BLOOD UREA NITROGEN 8 mg/dl (6-24); CALCIUM 8.7 mg/dl (8.5-10.5); CARBON DIOXIDE-VENOUS 19 mmol/L (22-32); CHLORIDE 111 mmol/l (96-110); CREATININE 0.88 mg/dl (0.50-1.10); GLUCOSE 156 mg/dL (70-110); POTASSIUM 3.8 mmol/L (3.7-5.1); SODIUM 140 mmol/L (135-145); eGFR VALUE FOR BLACK 82 mL/Min
[2017-01-27 02:37] LABS: BASO % 0.3 % (0-2); EOS % 0.6 % (0-7); EOSINOPHIL ABSOLUTE COUNT 0.1 tho/cmm (0.0-0.7); HGB-HEMOGLOBIN 9.1 gm/dl (12.0-15.5); IMMATURE GRANULOCYTES ABSOLUTE 0.04 tho/cmm (0-0.03); IMMATURE GRANULOCYTES PERCENT 0.4 % (0-0.3); LYMPH % 13.6 % (20-45); LYMPH ABSOLUTE COUNT 1.4 tho/cmm (0.8-4.5); MCH (MEAN CORPUSCULAR HGB) 24.3 pg (28.0-32.0); MCHC MEAN CORPUSCULAR HGB CONC 31.4 % (32.0-36.0); MCV (MEAN CELL VOLUME) 77.5 fl (82.0-96.0); MEAN PLATELET VOLUME 9.6 cmc (9.4-12.4); MONO % 13.1 % (0-12); MONOCYTE ABSOLUTE COUNT 1.4 tho/cmm (0.0-1.2); NEUTROPHIL ABSOLUTE COUNT 7.5 tho/cmm (1.6-8.0); NEUTROPHIL-AUTOMATED 7.5 tho/cmm (1.6-8.0); PLATELET COUNT 326 tho/cmm (150-450); RED BLOOD COUNT 3.74 mil/cmm (4.00-5.20); RED CELL DISTRIBUTION WIDTH 17.9 % (12.4-16.4); WHITE BLOOD COUNT 10.4 tho/cmm (4.0-10.0)
[2017-01-27] MEDS ORDERED: CEFUROXIME PO (10:50)
--- NOTE | 2017-01-27 12:19 | NUR ---
VN DISCHARGE NOTE-DID DISCHARGE TEACHING REGARDING HHC AND CARES, ETC ON THE DISMISSAL INSTRUCTIONS AND FOLLOW UP APPTS. REVIEWED THE HOME MEDS AND THE DISCONTNUATION OF AUGMENTIN AND CLINDAMYCIN AND STARTING THE NEW ABXOF CEFTIN. PATIENT WAS ABLE TO DO TEACHBACK AND HAD NO FURTHER QUESTIONS OR CONCERNS AT THIS TIME.
[2017-03-04] MEDS ORDERED: MACROBID 100 M100 M1 PO (21:43)
[2017-04-05] MEDS ORDERED: PERCOCET 7.5-31 EAC1 PO (11:03)
[2017-04-05] MEDS ORDERED: AUGMENTIN 875-1 EAC2 PO (11:04)
[2017-04-05] MEDS ORDERED: KEPPRA500 M3 PO (11:22)
[2017-04-08] MEDS ORDERED: CLEOCIN HCL300 M1 PO (16:01)
[2017-04-22] MEDS ORDERED: INVANZ1 GM IV ×3 (07:42→08:28)
[2017-04-22] MEDS ORDERED: CULTURELLE1 EAC1 PO (09:57)
[2017-06-12] MEDS ORDERED: JANUMET (19:53)
[2017-06-12] MEDS ORDERED: SYMBICORT 160-1 PUFF INH (19:56)
[2017-06-12] MEDS ORDERED: [UNRECOGNIZED DRUG - OTHER] (19:56)
[2017-06-12] MEDS ORDERED: CEFDINIR300 M1 PO (21:08)
== END 2017-01-27 14:11 | DRG 872 ==
LOC: EDMED 15:41 → EMR2 20:39 → 5WD 22:15
PROVIDERS: Emergency Medicine; Family Medicine; ADMIT Family Medicine
PROC: 0TP98DZ Removal of Intraluminal Device from Ureter, Via Natural or Artificial Opening Endoscopic (ICD-10-PCS; principal; 2017-01-23)
PROC: 0T768DZ Dilation of Right Ureter with Intraluminal Device, Via Natural or Artificial Opening Endoscopic (ICD-10-PCS; 2017-01-23)
PROC: 05HC33Z Insertion of Infusion Device into Left Basilic Vein, Percutaneous Approach (ICD-10-PCS; 2017-01-23)
DX: A41.9 Sepsis, unspecified organism (principal); K56.60 Unspecified intestinal obstruction; N17.9 Acute kidney failure, unspecified; E87.2 Acidosis; E87.1 Hypo-osmolality and hyponatremia; K50.90 Crohn's disease, unspecified, without complications; N13.30 Unspecified hydronephrosis; N39.0 Urinary tract infection, site not specified; E83.42 Hypomagnesemia; E87.6 Hypokalemia; D64.9 Anemia, unspecified; F32.9 Major depressive disorder, single episode, unspecified; J44.9 Chronic obstructive pulmonary disease, unspecified; E11.9 Type 2 diabetes mellitus without complications; F41.9 Anxiety disorder, unspecified; I10 Essential (primary) hypertension; F17.210 Nicotine dependence, cigarettes, uncomplicated; G40.909 Epilepsy, unspecified, not intractable, without status epilepticus; M35.3 Polymyalgia rheumatica; Z88.1 Allergy status to other antibiotic agents; Z88.2 Allergy status to sulfonamides; Z86.73 Personal history of transient ischemic attack (TIA), and cerebral infarction without residual deficits
CPT/HCPCS: C1751; C1769; C2617; J0696; J1200; J1650; J1815; J1885; J2270; J2405; J2543; J2765; J3370; J3475; J3480; J7030; P9612; Q9967

== ENCOUNTER 2017-02-24 14:00 | Emergency (ER) | payer MEDICARE, MEDICAID ==
[~2017-02-24 14:00] MED LIST changes: +CEFUROXIME PO
[2017-02-24 15:17] LABS: BASO % 0.3 % (0-2); EOS % 2.6 % (0-7); EOSINOPHIL ABSOLUTE COUNT 0.3 tho/cmm (0.0-0.7); HCT-HEMATOCRIT 33.3 % (34.0-49.0); HGB-HEMOGLOBIN 10.1 gm/dl (12.0-15.5); IMMATURE GRANULOCYTES ABSOLUTE 0.03 tho/cmm (0-0.03); IMMATURE GRANULOCYTES PERCENT 0.3 % (0-0.3); LYMPH % 23.5 % (20-45); LYMPH ABSOLUTE COUNT 2.4 tho/cmm (0.8-4.5); MCH (MEAN CORPUSCULAR HGB) 24.4 pg (28.0-32.0); MCHC MEAN CORPUSCULAR HGB CONC 30.3 % (32.0-36.0); MCV (MEAN CELL VOLUME) 80.4 fl (82.0-96.0); MEAN PLATELET VOLUME 8.9 cmc (9.4-12.4); MONO % 10.1 % (0-12); NEUTROPHIL ABSOLUTE COUNT 6.5 tho/cmm (1.6-8.0); NEUTROPHIL-AUTOMATED 6.5 tho/cmm (1.6-8.0); NEUTROPHILS % 63.2 % (40-80); PLATELET COUNT 335 tho/cmm (150-450); RED BLOOD COUNT 4.14 mil/cmm (4.00-5.20); WHITE BLOOD COUNT 10.3 tho/cmm (4.0-10.0)
[2017-02-24 15:36] LABS: ALB/GLOB RATIO 0.6 (0.8-2.0); ALBUMIN 2.9 g/dl (3.5-5.0); ALKALINE PHOSPHATASE 193 U/L (33-138); ALT/SGPT 51 U/L (12-78); ANION GAP 12 mmol/L (0-20); AST/SGOT 22 U/L (10-40); BILIRUBIN,TOTAL 0.2 mg/dl (0-1.5); BLOOD UREA NITROGEN 13 mg/dl (6-24); CALCIUM 9.4 mg/dl (8.5-10.5); CARBON DIOXIDE-VENOUS 24 mmol/L (22-32); CHLORIDE 111 mmol/l (96-110); CREATININE 1.02 mg/dl (0.50-1.10); GLUCOSE 129 mg/dL (70-110); LIPASE 243 U/L (73-393); POTASSIUM 3.8 mmol/L (3.7-5.1); SODIUM 143 mmol/L (135-145); eGFR VALUE FOR BLACK 69 mL/Min
[2017-03-04] MEDS ORDERED: MACROBID 100 M100 M1 PO (21:43)
[2017-04-05] MEDS ORDERED: PERCOCET 7.5-31 EAC1 PO (11:03)
[2017-04-05] MEDS ORDERED: AUGMENTIN 875-1 EAC2 PO (11:04)
[2017-04-05] MEDS ORDERED: KEPPRA500 M3 PO (11:22)
[2017-04-08] MEDS ORDERED: CLEOCIN HCL300 M1 PO (16:01)
[2017-04-22] MEDS ORDERED: INVANZ1 GM IV ×3 (07:42→08:28)
[2017-04-22] MEDS ORDERED: CULTURELLE1 EAC1 PO (09:57)
[2017-06-12] MEDS ORDERED: JANUMET (19:53)
[2017-06-12] MEDS ORDERED: SYMBICORT 160-1 PUFF INH (19:56)
[2017-06-12] MEDS ORDERED: [UNRECOGNIZED DRUG - OTHER] (19:56)
[2017-06-12] MEDS ORDERED: CEFDINIR300 M1 PO (21:08)
== END 2017-02-24 17:00 ==
LOC: EDMED 14:00
PROVIDERS: Emergency Medicine
DX: R10.84 Generalized abdominal pain (principal); R11.2 Nausea with vomiting, unspecified; R19.7 Diarrhea, unspecified; I10 Essential (primary) hypertension; F17.200 Nicotine dependence, unspecified, uncomplicated; Z90.49 Acquired absence of other specified parts of digestive tract; Z90.710 Acquired absence of both cervix and uterus
CPT/HCPCS: J1170; J2405; J7030; Q9967

== ENCOUNTER 2017-03-05 12:18 | Inpatient (IN) | payer MEDICARE, MEDICAID ==
[~2017-03-05 12:18] MED LIST changes: +MACROBID 100 M100 M1 PO
[2017-03-05 14:57] LABS: BASO % 0.3 % (0-2); EOS % 1.4 % (0-7); EOSINOPHIL ABSOLUTE COUNT 0.2 tho/cmm (0.0-0.7); HCT-HEMATOCRIT 32.8 % (34.0-49.0); HGB-HEMOGLOBIN 10.1 gm/dl (12.0-15.5); IMMATURE GRANULOCYTES ABSOLUTE 0.02 tho/cmm (0-0.03); IMMATURE GRANULOCYTES PERCENT 0.2 % (0-0.3); LYMPH % 16.9 % (20-45); MCH (MEAN CORPUSCULAR HGB) 24.7 pg (28.0-32.0); MCHC MEAN CORPUSCULAR HGB CONC 30.8 % (32.0-36.0); MCV (MEAN CELL VOLUME) 80.2 fl (82.0-96.0); MEAN PLATELET VOLUME 9.8 cmc (9.4-12.4); MONO % 7.8 % (0-12); MONOCYTE ABSOLUTE COUNT 0.9 tho/cmm (0.0-1.2); NEUTROPHIL ABSOLUTE COUNT 8.8 tho/cmm (1.6-8.0); NEUTROPHIL-AUTOMATED 8.8 tho/cmm (1.6-8.0); NEUTROPHILS % 73.4 % (40-80); PLATELET COUNT 403 tho/cmm (150-450); RED BLOOD COUNT 4.09 mil/cmm (4.00-5.20); RED CELL DISTRIBUTION WIDTH 18.3 % (12.4-16.4); WHITE BLOOD COUNT 11.9 tho/cmm (4.0-10.0)
[2017-03-05 15:01] LABS: INR 0.9 INR (0.9-1.1); PROTHROMBIN TIME 10.3 SECONDS (9.0-13.6)
[2017-03-05 15:11] LABS: ALB/GLOB RATIO 0.5 (0.8-2.0); ALBUMIN 2.9 g/dl (3.5-5.0); ALKALINE PHOSPHATASE 135 U/L (33-138); ALT/SGPT 21 U/L (12-78); BILIRUBIN,TOTAL 0.3 mg/dl (0-1.5); BLOOD UREA NITROGEN 17 mg/dl (6-24); C-REACTIVE PROTEIN 4.4 mg/dl (0-0.9); CALCIUM 9.5 mg/dl (8.5-10.5); CARBON DIOXIDE-VENOUS 22 mmol/L (22-32); CHLORIDE 108 mmol/l (96-110); CREATININE 0.92 mg/dl (0.50-1.10); GLUCOSE 96 mg/dL (70-110); PHOSPHOROUS 3.2 mg/dl (2.5-4.9); SODIUM 138 mmol/L (135-145); eGFR VALUE FOR BLACK 77 mL/Min
[2017-03-05 15:12] LABS: ANION GAP 13 mmol/L (0-20); AST/SGOT 37 U/L (10-40); MAGNESIUM 1.9 mg/dl (1.8-2.6); POTASSIUM 4.6 mmol/L (3.7-5.1)
[2017-03-05 15:24] LABS: PROCALCITONIN <0.05 ng/ml (0.05-0.09)
[2017-03-05 18:52] LABS: URINE BILIRUBIN NEGATIVE (NEG); URINE BLOOD LARGE (NEG); URINE GLUCOSE (UA) NEGATIVE (NEG); URINE KETONE NEGATIVE (NEG); URINE LEUKOCYTE ESTERASE POSITIVE (NEG); URINE NITRITE NEGATIVE (NEG); URINE PROTEIN MODERATE (NEG); URINE SPECIFIC GRAVITY 1.015 (1.003-1.030)
[2017-03-05 18:53] LABS: URINE APPEARANCE CLOUDY; URINE COLOR PALE YELLOW
[2017-03-05 19:26] LABS: URINE EPITHELIAL CELLS 0-4 /[HPF] (0-10); URINE RBC 45-50 /[HPF] (0-5); URINE WBC 40-45 /[HPF] (0-5)
[2017-03-05 19:27] LABS: URINE AMORPHOUS 2+
--- NOTE | 2017-03-05 19:44 | NUR ---
VIRTUAL CARE NOTE: PT. IN BED, STATES JUST HAD SOME PAIN MEDICATIONS, AND HAS BARIUM COMING OUT OF OSTOMY. ALSO MENTIONS THAT THE DOCTOR THAT WORDS WITH HER PHYSICIAN CAME IN AND EXPLANINED EVERYTHING AND DOESN'T HAVE ANY QUESTIONS AT THIS TIME. EDUCATION REVIEWED REGARDING FALL RISK PREVENTION. INSTRUCTED TO CALL FOR FUTURE NEEDS. STATES VERBAL AGREEMENT.
--- NOTE | 2017-03-05 22:36 | NUR ---
03/05 NOC: PTs DAUGHTER, NOAH, CALLED WHILE MD WAS ARRANGING FOR OR. MD HAD PTs CHART AND DAUGHTER WAS REQUESTING INFORMATION. THIS NURSE INFORMED PT THAT WITHOUT THE CHART TO VERIFY IF SHE IS ALLOWED TO RECEIVE INFO, STAFF COULD NOT RELEASE MEDICAL INFO TO HER. PLACED DAUGHTER ON HOLD, INFORMED PT THAT HER DAUGHTER WAS ON THE PHONE. PT INSTRUCTED THIS NURSE TO TELL DAUGHTER TO CALL PT ON HER CELL PHONE. THIS NURSE INFORMED DAUGHTER AND SHE BECAME IRATE, STATING SHE WAS PTs POA AND THAT SHE HAD A RIGHT TO INFORMATION. SHE ALSO STATED THAT HER MOM WAS UNRELIABLE AND LIKED TO EXAGGERATE THINGS SO SHE WANTED TO SPEAK TO SOMEONE WITH A MEDICAL BACKGROUND. INFORMED HER THAT WE DO NOT HAVE ANYTHING STATING THAT AND THAT THE PT REQUESTS TO BE CALLED ON HER CELL PHONE. DAUGHTER DEMANDED TO SPEAK TO MD, WHO HAD ALREADY LEFT. THIS NURSE TOLD DAUGHTER THAT MD WAS NOT AVAILABLE AND THAT SHE MAY NOT SPEAK TO STAFF IN SUCH A WAY. DAUGHTER THEN YELLED AT THIS NURSE, STATING "YOU'RE A FUCKER" AND THEN HUNG UP THE PHONE. PT NOTIFIED OF EXCHANGE. PT APOLOGETIC, STATES THAT IT IS OKAY TO GIVE INFORMATION TO HER DAUGHTER AND THAT SHE WILL ASK HER OTHER DAUGHTER, "SVETLANA" TO BRING A COPY OF THE POA PAPERS. PT STATES SHE WILL SPEAK TO HER DAUGHTER ABOUT PLAN OF CARE. CHARGE NURSE JOSE MANUEL NOTIFIED.
[2017-03-06 06:37] LABS: BASO % 0.2 % (0-2); EOS % 1.3 % (0-7); EOSINOPHIL ABSOLUTE COUNT 0.1 tho/cmm (0.0-0.7); HCT-HEMATOCRIT 30.6 % (34.0-49.0); HGB-HEMOGLOBIN 9.5 gm/dl (12.0-15.5); IMMATURE GRANULOCYTES ABSOLUTE 0.03 tho/cmm (0-0.03); IMMATURE GRANULOCYTES PERCENT 0.3 % (0-0.3); LYMPH % 9.3 % (20-45); LYMPH ABSOLUTE COUNT 0.9 tho/cmm (0.8-4.5); MCH (MEAN CORPUSCULAR HGB) 24.7 pg (28.0-32.0); MCV (MEAN CELL VOLUME) 79.7 fl (82.0-96.0); MEAN PLATELET VOLUME 9.2 cmc (9.4-12.4); MONO % 10.6 % (0-12); NEUTROPHIL ABSOLUTE COUNT 7.4 tho/cmm (1.6-8.0); NEUTROPHIL-AUTOMATED 7.4 tho/cmm (1.6-8.0); NEUTROPHILS % 78.3 % (40-80); PLATELET COUNT 359 tho/cmm (150-450); RED BLOOD COUNT 3.84 mil/cmm (4.00-5.20); RED CELL DISTRIBUTION WIDTH 18.1 % (12.4-16.4); WHITE BLOOD COUNT 9.5 tho/cmm (4.0-10.0)
[2017-03-06 06:57] LABS: ANION GAP 16 mmol/L (0-20); BLOOD UREA NITROGEN 9 mg/dl (6-24); CALCIUM 8.4 mg/dl (8.5-10.5); CARBON DIOXIDE-VENOUS 19 mmol/L (22-32); CHLORIDE 110 mmol/l (96-110); CREATININE 0.83 mg/dl (0.50-1.10); GLUCOSE 132 mg/dL (70-110); SODIUM 141 mmol/L (135-145); eGFR VALUE FOR BLACK 88 mL/Min
[2017-03-06 06:58] LABS: POTASSIUM 3.6 mmol/L (3.7-5.1)
--- NOTE | 2017-03-06 15:27 | NUR ---
VIRTUAL CARE NOTE: VISITED W/ PT AT THIS TIME. SHE'S RESTING IN BED. SISTER AT BEDSIDE. ASKS APPROPRIATE QUESTIONS RE: HER CARE PLAN. AWAITING INFORMATION FROM [facility] AND [facility] RE: HER PROCEDURE TODAY. I LET HER KNOW THEY WILL UPDATE HER ON THEIR ROUNDS WHEN THE COME TO SEE HER, LIKELY TOMORROW MORNING. THEY WILL INFORM HER OF THEIR FINDINGS AT THAT TIME. STATES SHE HAS RECOVERED WELL FROM HER CYSTO OTHER THAN SOME BLEEDING THAT SHE HAS NOTED W/ WIPING AND IN HER DEPENDS. ENCOURAGED HER TO MONITOR IT CLOSELY AND LET STAFF KNOW IF IT BECOMES WORSE OR IF SHE STARTS PASSING BLOOD CLOTS. SHE IS IN AGREEMENT WITH THIS. STATES SHE HAS BEEN UP FOR SEVERAL WALKS TODAY. HAS NO FURTHER QUESTIONS OR NEEDS. WILL CONTINUE TO MONITOR.
[2017-03-07 05:44] LABS: BASO % 0.3 % (0-2); EOS % 1.7 % (0-7); EOSINOPHIL ABSOLUTE COUNT 0.1 tho/cmm (0.0-0.7); HCT-HEMATOCRIT 28.5 % (34.0-49.0); HGB-HEMOGLOBIN 8.6 gm/dl (12.0-15.5); IMMATURE GRANULOCYTES ABSOLUTE 0.02 tho/cmm (0-0.03); IMMATURE GRANULOCYTES PERCENT 0.3 % (0-0.3); LYMPH % 25.7 % (20-45); LYMPH ABSOLUTE COUNT 1.8 tho/cmm (0.8-4.5); MCH (MEAN CORPUSCULAR HGB) 24.6 pg (28.0-32.0); MCHC MEAN CORPUSCULAR HGB CONC 30.2 % (32.0-36.0); MCV (MEAN CELL VOLUME) 81.4 fl (82.0-96.0); MONO % 12.2 % (0-12); MONOCYTE ABSOLUTE COUNT 0.9 tho/cmm (0.0-1.2); NEUTROPHIL ABSOLUTE COUNT 4.3 tho/cmm (1.6-8.0); NEUTROPHIL-AUTOMATED 4.3 tho/cmm (1.6-8.0); NEUTROPHILS % 59.8 % (40-80); PLATELET COUNT 341 tho/cmm (150-450); RED CELL DISTRIBUTION WIDTH 18.1 % (12.4-16.4); WHITE BLOOD COUNT 7.1 tho/cmm (4.0-10.0)
[2017-03-07 05:51] LABS: ANION GAP 10 mmol/L (0-20); BLOOD UREA NITROGEN 11 mg/dl (6-24); CALCIUM 8.5 mg/dl (8.5-10.5); CARBON DIOXIDE-VENOUS 23 mmol/L (22-32); CHLORIDE 116 mmol/l (96-110); GLUCOSE 129 mg/dL (70-110); POTASSIUM 4.3 mmol/L (3.7-5.1); SODIUM 145 mmol/L (135-145); eGFR VALUE FOR BLACK 79 mL/Min
[2017-03-07] MEDS ORDERED: MACROBID 100 M100 M1 PO (08:45)
[2017-04-05] MEDS ORDERED: PERCOCET 7.5-31 EAC1 PO (11:03)
[2017-04-05] MEDS ORDERED: AUGMENTIN 875-1 EAC2 PO (11:04)
[2017-04-05] MEDS ORDERED: KEPPRA500 M3 PO (11:22)
[2017-04-08] MEDS ORDERED: CLEOCIN HCL300 M1 PO (16:01)
[2017-04-22] MEDS ORDERED: INVANZ1 GM IV ×3 (07:42→08:28)
[2017-04-22] MEDS ORDERED: CULTURELLE1 EAC1 PO (09:57)
[2017-06-12] MEDS ORDERED: JANUMET (19:53)
[2017-06-12] MEDS ORDERED: SYMBICORT 160-1 PUFF INH (19:56)
[2017-06-12] MEDS ORDERED: [UNRECOGNIZED DRUG - OTHER] (19:56)
[2017-06-12] MEDS ORDERED: CEFDINIR300 M1 PO (21:08)
== END 2017-03-07 09:55 | DRG 694 ==
LOC: CAR1 12:18 → 5WD 18:33 → PACU 03-06 10:15 → 5WD 03-06 11:00
PROVIDERS: ADMIT Family Medicine
PROC: 0TP98DZ Removal of Intraluminal Device from Ureter, Via Natural or Artificial Opening Endoscopic (ICD-10-PCS; principal; 2017-03-06)
PROC: 0T768DZ Dilation of Right Ureter with Intraluminal Device, Via Natural or Artificial Opening Endoscopic (ICD-10-PCS; 2017-03-06)
PROC: BT1DZZZ Fluoroscopy of Right Kidney, Ureter and Bladder (ICD-10-PCS; 2017-03-06)
DX: N13.30 Unspecified hydronephrosis (principal); K50.90 Crohn's disease, unspecified, without complications; J44.9 Chronic obstructive pulmonary disease, unspecified; F41.9 Anxiety disorder, unspecified; D64.9 Anemia, unspecified; E11.9 Type 2 diabetes mellitus without complications; N93.9 Abnormal uterine and vaginal bleeding, unspecified
CPT/HCPCS: C1769; C2617; G8978-GP-CJ; G8979-GP-CJ; G8987-GO-CL; G8988-GO-CI; J1580; J1815; J2270; J7030; Q9967